=== PATIENT | female | born 1985 | race Caucasian/White ===

== ENCOUNTER 2021-04-11 12:42 | Emergency (ER) | payer OTHER ==
[~2021-04-11] VITALS: Ht 167.6 cm; Wt 85.3 kg
[~2021-04-11 12:42] MED LIST: ACETAMINOPHEN325 M1 PO; ALKA-SELTZER P1 EA11; AMOXICILLIN500 M1 PO; APAP650 PO; AUGMENTIN 875875 MG PO; AZITHROMYCIN 2250 MG PO; BACTRIM DS TAB1 EACH PO; CIPROFLOXACIN500 M1 PO; CORTISPORIN EY7.5 ML OTIC; CORTISPORIN OTI10 M2 OTIC; CORTISPORIN OTI10 ML OTIC; DARVOCET-N 1001 EACH PO; EAR DROPS15 ML; FLAGYL500 MG PO; IBUPROFEN 200200 M1; IBUPROFEN 600600 M1 PO; IBUPROFEN 800800 MG PO; MEDROL DOSPAK21 TA1 PO; NOHOMEMEDICATIONS; NORCO 5-325 TA1 EACH PO; PENICILLIN VK500 MG PO; PROVENTIL HFA6.7 G1 INH; TRAMADOL 50 MG50 MG PO; TYLENOL EX-STR500 M2 PO; ULTRAM 50MG TAB50 MG PO; XANAX 0.5 MG0.5 MG PO; ZOFRAN ODT4 MG PO; ZPAK PO
[2021-04-11 13:08] VITALS: BP 189/105
[2021-04-11] MEDS ORDERED: MOBIC7.5 MG PO (13:22)
[2021-04-11] MEDS ORDERED: FLEXERIL PO (13:22)
== END 2021-04-11 13:23 | disposition home or self-care (01) ==
LOC: ER 12:42
DX: S09.90XA Unspecified injury of head, initial encounter (principal); M25.512 Pain in left shoulder; J45.909 Unspecified asthma, uncomplicated; F17.210 Nicotine dependence, cigarettes, uncomplicated; X58.XXXA Exposure to other specified factors, initial encounter; Y93.89 Activity, other specified; Y92.89 Other specified places as the place of occurrence of the external cause; Y99.8 Other external cause status